=== PATIENT | male | born 1975 | race Hispanic/Latino ===

== ENCOUNTER → 2018-12-10 | Outpatient (CLI) | payer OTHER ==
--- NOTE | 2018-12-10 14:08 | Diagnostic Imaging Report ---
Exam: KUB - 2 views Indication: Renal calculi Comparison: KUB of 11/10/2016 Findings: No radiographically apparent renal calculi. Nonobstructive bowel gas pattern. No free air. Phlebolith in the pelvis. The osseous structures appear unremarkable. Impression: No radiographically apparent renal calculi. Signed by: Amador Friedman MD on 12/10/2018 2:05 PM
--- NOTE | 2018-12-10 14:10 | Diagnostic Imaging Report ---
EXAM: Renal Ultrasound INDICATION: ^[id number] ^[id number] ^CALCULUS OF KIDNEY COMPARISON: KUB of the same day, CT abdomen and pelvis of 11/30/2014 TECHNIQUE: Transverse and longitudinal images of the kidneys and bladder were obtained. FINDINGS: Right Kidney: Length: 11.4 cm Appearance: Normal echogenicity. Collecting system: No hydronephrosis Stones: None Cyst/Mass: None Left Kidney: Length: 11.4 cm Appearance: Normal echogenicity. Collecting system: No hydronephrosis Stones: None Cyst/Mass: None Incidental note is made of increased hepatic parenchymal echogenicity consistent with hepatic steatosis. Bladder: No mass or calculi. Bilateral ureteral jets visualized. Prevoid volume estimate of 60.4 cc. Prostate: The prostate measures 2.6 x 2.8 x 3.5 cm with volume estimate of 13.2 cc. IMPRESSION: No renal calculi or hydronephrosis. Hepatic steatosis. Signed by: Amador Friedman MD on 12/10/2018 2:07 PM
== END ==
LOC: US 12:46
PROVIDERS: ATTEND Urology
DX: N20.0 Calculus of kidney (principal)
CPT/HCPCS: 74018; 76770

== ENCOUNTER → 2019-01-23 | Outpatient (CLI) | payer OTHER ==
--- NOTE | 2019-01-23 16:43 | Diagnostic Imaging Report ---
Parathyroid Scan with SPECT Reason for exam: Hyperparathyroidism Radiopharmaceutical: Tc-99m sestamibi 27.5 mCi IV RAC After intravenous administration of the radiopharmaceutical, immediate and 2-hour planar images of the neck and upper chest were obtained. Tomographic images of the neck and upper chest were also obtained following the initial planar images. Distribution of tracer activity appears physiologic throughout the neck and upper chest on the planar and tomographic images. No focal areas of increased tracer accumulation are identified. On the delayed planar images, washout of tracer from the thyroid is complete with no focal areas of persistent tracer activity. Impression: Negative parathyroid scan No enlarged hypermetabolic parathyroid glands are identified. Signed by: Dr. Alma Escobedo M.D. on 01/23/2019 4:40 PM
== END ==
LOC: NM 10:57
PROVIDERS: ATTEND Urology
DX: E21.3 Hyperparathyroidism, unspecified (principal)
CPT/HCPCS: 78071; A9500

== ENCOUNTER → 2019-09-26 | Outpatient (CLI) | payer OTHER ==
--- NOTE | 2019-09-26 15:24 | Diagnostic Imaging Report ---
EXAM: ABDOMEN-1VIEW (KUB) DATE: 09/26/2019 2:51 PM INDICATION: Calculus of kidney COMPARISON: 12/10/2018 FINDINGS: No radiographically evident renal calculi or urinary stone is appreciated. Stable phlebolith noted within the right pelvis. Bowel gas pattern is nonobstructive. No pathologically dilated loops of bowel are identified. No acute osseous abnormality is identified. IMPRESSION: No radiographically evident renal calculi identified. Signed by: Dr. Bautista Arzola MD on 09/26/2019 3:20 PM
--- NOTE | 2019-09-26 15:45 | Diagnostic Imaging Report ---
EXAM: US RENAL RETROPERITONEAL COMP DATE: 09/26/2019 2:46 PM INDICATION: Calculus of kidney COMPARISON: None FINDINGS: The right kidney is normal in size measuring 10.6 x 5.2 x 5.0 cm with cortical thickness of 1.9 cm. Cortical echogenicity is within normal limits. There is no evidence for solid renal mass, hydronephrosis, or shadowing calculi. The left kidney is normal in size measuring 11.2 x 4.8 x 5.4 cm with cortical thickness of 2.3 cm. Cortical echogenicity is within normal limits. There is no solid renal mass, hydronephrosis, or shadowing calculi. The partially distended urinary bladder demonstrates no significant abnormalities. Bilateral ureteral jets are noted. Prevoid volume is 63 cc. The prostate appears grossly unremarkable. IMPRESSION: Unremarkable renal ultrasound examination. Signed by: Dr. Bautista Arzola MD on 09/26/2019 3:41 PM
== END ==
LOC: US 14:18
PROVIDERS: ATTEND Urology
DX: N20.0 Calculus of kidney (principal)
CPT/HCPCS: 74018; 76770

== ENCOUNTER 2021-09-13 11:25 | Emergency (ER) | payer OTHER ==
[~2021-09-13] VITALS: Ht 167.6 cm; Wt 83.9 kg
[2021-09-13] MEDS ORDERED: NIRMATRELVIR/RITONAVIR 1 EACH BOX PO SCH (12:15)
== END 2021-09-13 12:42 | disposition home or self-care (01) ==
LOC: ER 12:07
DX: R05.9 Cough, unspecified (principal); U07.1 COVID-19
CPT/HCPCS: 99282

== ENCOUNTER → 2022-08-11 | Outpatient (CLI) | payer OTHER | END | disposition home or self-care (01) | LOC: RAD 11:12 | PROVIDERS: ATTEND Urology | DX: N02.0 Recurrent and persistent hematuria with minor glomerular abnormality (principal) | CPT/HCPCS: 74018 ==

== ENCOUNTER → 2024-03-11 | Outpatient (REF) | payer OTHER | LOC: RAD 14:35 | PROVIDERS: ATTEND Urology | DX: N20.0 Calculus of kidney (principal); Z87.442 Personal history of urinary calculi | CPT/HCPCS: 74018 ==